=== PATIENT | female | born 1960 | race Caucasian/White ===

== ENCOUNTER → 2016-07-12 | Outpatient (CLI) | payer MEDICAID ==
[~2016-07-12] MED LIST: CARB200T4 PO; DOCU100C8 PO; DRON10CA PO; EPIN0.3P3 IM; HYDR12.53 PO; LEVO750T26 PO; OXYC1TAB6 PO; OXYC30TA PO; OXYC30TA66 PO; RANI150C PO; TERB250T3 PO
== END | disposition home or self-care (01) ==
LOC: CFH 12:49
PROVIDERS: ATTEND Radiology Radiation Oncology
DX: D32.0 Benign neoplasm of cerebral meninges (principal)
CPT/HCPCS: 70553

== ENCOUNTER → 2017-02-17 | Outpatient (CLI) | payer MEDICAID ==
[~2017-02-17] MED LIST changes: +DOCU100C33 PO; -DOCU100C8 PO; +GADOBUTROL 7.5 MMOL/7.5 ML PFS ONE
== END | disposition home or self-care (01) ==
LOC: CFH 14:35
PROVIDERS: ATTEND Neurological Surgery
DX: G93.89 Other specified disorders of brain (principal); R90.82 White matter disease, unspecified
CPT/HCPCS: 70551; A9585

== ENCOUNTER 2017-03-09 22:23 | Inpatient (IN) | payer MEDICAID ==
[~2017-03-09] VITALS: Ht 147.3 cm; Wt 67.2 kg
[~2017-03-09 22:23] MED LIST changes: -GADOBUTROL 7.5 MMOL/7.5 ML PFS ONE
[2017-03-09] MEDS ORDERED: SODIUM CHLORIDE FLUSH 10ML SYR IVF ONE (23:00)
[2017-03-09] MEDS ORDERED: SODIUM CHLORIDE 0.9% 1,000ML IVBOLUS ONE (23:00)
[2017-03-09] MEDS ORDERED: ACETAMINOPHEN 500 MG TABLET PO ONE (23:00)
[2017-03-09] MEDS ORDERED: ONDANSETRON 2MG/ML, 2ML IVPush ONE (23:00)
[2017-03-09] MEDS ORDERED: ONDANSETRON 2MG/ML, 2ML ONE (23:16)
[2017-03-09] MEDS ORDERED: ACETAMINOPHEN 500 MG TABLET ONE (23:16)
[2017-03-09 23:21] LABS: BASOPHILS # (AUTO) 0.03 x10^3/uL (0-0.1); BASOPHILS % (AUTO) 0 % (0-1); EOSINOPHILS # (AUTO) 0.03 x10^3/uL (0-0.4); EOSINOPHILS % (AUTO) 0 % (1-7); LYMPHOCYTES # (AUTO) 1.42 x10^3/uL (1-3.4); LYMPHOCYTES % (AUTO) 11 % (22-44); MD NO; MEAN CORPUSCULAR HEMOGLOBIN 30.2 pg (27.0-34.8); MEAN CORPUSCULAR HGB CONC 33.8 g/dL (32.4-35.8); MEAN CORPUSCULAR VOLUME 89.2 fL (80-100); MEAN PLATELET VOLUME 8.5 fL (7.4-10.4); MONOCYTES # (AUTO) 0.87 x10^3/uL (0.2-0.8); MONOCYTES % (AUTO) 7 % (2-9); NEUTROPHILS # (AUTO) 10.47 x10^3/uL (1.8-6.8); NEUTROPHILS % (AUTO) 82 % (42-75); PLATELET COUNT 163 x10^3/uL (130-400); RED BLOOD COUNT 4.99 x10^6/uL (3.82-5.3)
[2017-03-09 23:33] LABS: ALBUMIN 3.3 g/dL (3.4-5.0); ANION GAP 5 mmol/L (5-15); CALCIUM 8.7 mg/dL (8.5-10.1); CHLORIDE 101 mmol/L (98-107); CREATININE 0.91 mg/dL (0.55-1.02)
[2017-03-09 23:49] LABS: RAPID INFLUENZA A Negative (Negative); RAPID INFLUENZA B Negative (Negative)
[2017-03-10] MEDS ORDERED: AZITHROMYCIN 500 MG in SODIUM CHLORIDE 0.9% 250 ML IVPB ONE (00:30)
[2017-03-10] MEDS ORDERED: SODIUM CHLORIDE 0.9% 1,000ML IVBOLUS ONE (00:30)
[2017-03-10] MEDS ORDERED: CEFTRIAXONE PMX 1GM/50ML 50 ML IVPB ONE (00:30)
[2017-03-10] MEDS ORDERED: CEFTRIAXONE PMX 1GM/50ML 50 ML ONE (00:46)
[2017-03-10] MEDS ORDERED: ALPR1TAB6 PO (00:52)
[2017-03-10] MEDS ORDERED: FURO20TA3 PO (00:53)
[2017-03-10] MEDS ORDERED: [UNRECOGNIZED DRUG - REMARK] (00:53)
[2017-03-10 01:43] VITALS: BP 92/44
[2017-03-10] MEDS ORDERED: PROMETHAZINE 25 MG/ML, 1ML IM PRN (04:30)
[2017-03-10] MEDS ORDERED: ACETAMINOPHEN 325 MG TABLET PO PRN (04:30)
[2017-03-10] MEDS ORDERED: ONDANSETRON ODT 4 MG PO PRN (04:30)
[2017-03-10] MEDS ORDERED: ONDANSETRON 2MG/ML, 2ML IVPush PRN (04:30)
[2017-03-10] MEDS ORDERED: BISACODYL 10 MG SUPP PR PRN (04:30)
[2017-03-10] MEDS ORDERED: DOCUSATE 100 MG CAPSULE PO PRN (04:30)
[2017-03-10] MEDS: SODIUM CHLORIDE 0.9% 1,000 ML IV SCH ×3 (04:33→21:30)
[2017-03-10 04:51] LABS: BASOPHILS # (AUTO) 0.02 x10^3/uL (0-0.1); BASOPHILS % (AUTO) 0 % (0-1); EOSINOPHILS # (AUTO) 0.03 x10^3/uL (0-0.4); EOSINOPHILS % (AUTO) 0 % (1-7); LYMPHOCYTES # (AUTO) 0.94 x10^3/uL (1-3.4); LYMPHOCYTES % (AUTO) 6 % (22-44); MD NO; MEAN CORPUSCULAR HEMOGLOBIN 30.2 pg (27.0-34.8); MEAN CORPUSCULAR HGB CONC 33.7 g/dL (32.4-35.8); MEAN CORPUSCULAR VOLUME 89.4 fL (80-100); MONOCYTES # (AUTO) 1.02 x10^3/uL (0.2-0.8); MONOCYTES % (AUTO) 7 % (2-9); NEUTROPHILS # (AUTO) 13.15 x10^3/uL (1.8-6.8); NEUTROPHILS % (AUTO) 87 % (42-75); PLATELET COUNT 122 x10^3/uL (130-400); RED BLOOD COUNT 4.31 x10^6/uL (3.82-5.3)
[2017-03-10 04:57] LABS: CHLORIDE 108 mmol/L (98-107)
[2017-03-10 04:58] LABS: INTERNATIONAL NORMALIZED RATIO 1.09 (0.93-1.1); PROTHROMBIN TIME 11.2 Seconds (9.6-11.5)
[2017-03-10 05:09] LABS: ALANINE AMINOTRANSFERASE 48 U/L (12-78); ALBUMIN 2.5 g/dL (3.4-5.0); ALKALINE PHOSPHATASE 78 U/L (45-117); ANION GAP 7 mmol/L (5-15); BILIRUBIN,TOTAL 0.7 mg/dL (0.2-1.0); CALCIUM 7.5 mg/dL (8.5-10.1); CHOL/HDL RATIO 3.1; CHOLESTEROL, TOTAL 145 mg/dL (140-239); CREATININE 0.77 mg/dL (0.55-1.02); HDL CHOL % 32 % (28-40); HDL CHOLESTEROL (DIRECT) 47 mg/dL (40-60); LDL CHOLESTEROL,CALCULATED 84 mg/dL (54-169); LDL/HDL RATIO 1.8 (0.5-3.0); TOTAL PROTEIN 6.1 g/dL (6.4-8.2); TRIGLYCERIDES 70 mg/dL (50-200); TROPONIN I < 0.015 ng/mL (0.000-0.045); VLDL CHOLESTEROL 14 mg/dL (0-25)
[2017-03-10] MEDS ORDERED: ALBUTEROL/IPRATROPIUM 2.5MG/0.5MG, 3 ML NPPB PRN (05:30)
[2017-03-10 05:44] LABS: HEMOGLOBIN A1C 5.5 % (4.2-6.3)
[2017-03-10 05:46] LABS: THYROID STIMULATING HORMONE 0.284 mIU/L (0.358-3.740)
[2017-03-10] MEDS: LEVOFLOXACIN/PMX 750MG/150ML 150 ML IV SCH (05:56)
[2017-03-10 07:33] VITALS: BP 108/72
[2017-03-10] MEDS: OXYcodone IR 30 MG TABLET PO SCH ×2 (09:09→20:04)
[2017-03-10] MEDS: HEPARIN 5,000 UNITS/ML, 1ML SQ SCH ×2 (09:09→16:32)
[2017-03-10 10:50] LABS: CULTURE INDICATED? NO; MICROSCOPIC NOT IND
[2017-03-10 11:02] LABS: AMPHETAMINE SCREEN, URINE Positive (Negative); BARBITURATE SCREEN, URINE Negative (Negative); BENZODIAZEPINE SCREEN, URINE Negative (Negative); CANNABINOID SCREEN, URINE Positive (Negative); COCAINE SCREEN, URINE Negative (Negative); METHADONE SCREEN, URINE Negative (Negative); OPIATE SCREEN, URINE Positive (Negative)
[2017-03-10 11:06] LABS: TROPONIN I < 0.015 ng/mL (0.000-0.045)
[2017-03-10 14:00] VITALS: BP 113/80
[2017-03-10 19:00] VITALS: BP 151/96
[2017-03-10] MEDS ORDERED: OXYcodone IR 5MG TABLET ONE (20:00)
[2017-03-10] MEDS ORDERED: DIPHENHYDRAMINE 25 MG CAPSULE PO ONE (23:00)
[2017-03-11 00:20] VITALS: BP 113/75
[2017-03-11] MEDS: HEPARIN 5,000 UNITS/ML, 1ML SQ SCH ×3 (00:26→15:49)
[2017-03-11] MEDS: SODIUM CHLORIDE 0.9% 1,000 ML IV SCH (04:44)
[2017-03-11] MEDS: LEVOFLOXACIN/PMX 750MG/150ML 150 ML IV SCH (04:44)
[2017-03-11 05:51] LABS: ALBUMIN 2.5 g/dL (3.4-5.0); ANION GAP 6 mmol/L (5-15); CHLORIDE 108 mmol/L (98-107)
[2017-03-11 05:54] LABS: ALANINE AMINOTRANSFERASE 41 U/L (12-78); ALKALINE PHOSPHATASE 78 U/L (45-117); BILIRUBIN,TOTAL 0.9 mg/dL (0.2-1.0); TOTAL PROTEIN 6.4 g/dL (6.4-8.2)
[2017-03-11 06:12] LABS: BASOPHILS # (AUTO) 0.02 x10^3/uL (0-0.1); BASOPHILS % (AUTO) 0 % (0-1); EOSINOPHILS # (AUTO) 0.06 x10^3/uL (0-0.4); EOSINOPHILS % (AUTO) 1 % (1-7); LYMPHOCYTES # (AUTO) 1.62 x10^3/uL (1-3.4); LYMPHOCYTES % (AUTO) 17 % (22-44); MD NO; MEAN CORPUSCULAR HEMOGLOBIN 30.4 pg (27.0-34.8); MEAN CORPUSCULAR VOLUME 89.4 fL (80-100); MEAN PLATELET VOLUME 9.3 fL (7.4-10.4); MONOCYTES % (AUTO) 11 % (2-9); NEUTROPHILS # (AUTO) 6.74 x10^3/uL (1.8-6.8); NEUTROPHILS % (AUTO) 71 % (42-75); PLATELET COUNT 113 x10^3/uL (130-400); RED BLOOD COUNT 4.02 x10^6/uL (3.82-5.3); RED CELL DISTRIBUTION WIDTH 12.6 % (9.6-15.2)
[2017-03-11 07:08] VITALS: BP 115/76
[2017-03-11] MEDS ORDERED: OXYcodone IR 5MG TABLET ONE (07:36)
[2017-03-11] MEDS: OXYcodone IR 30 MG TABLET PO SCH (07:40)
[2017-03-11] MEDS ORDERED: MAGNESIUM SULFATE PMX 2GM/50ML 50 ML IV ONE (08:30)
[2017-03-11] MEDS ORDERED: POTASSIUM PHOSPHATE 44 MEQ in SODIUM CHLORIDE 0.9% 500 ML IV ONE (08:30)
== END 2017-03-11 16:18 | disposition left against medical advice (07) | DRG 195 ==
LOC: ED 23:47 → EDIP 03-10 00:44 → 4NOR 03-10 01:26
PROVIDERS: ADMIT Surgery; ATTEND Hospitalist
DX: J15.9 Unspecified bacterial pneumonia (principal); E83.39 Other disorders of phosphorus metabolism; E86.0 Dehydration; G40.909 Epilepsy, unspecified, not intractable, without status epilepticus; Z53.21 Procedure and treatment not carried out due to patient leaving prior to being seen by health care provider; E83.42 Hypomagnesemia; H54.62 Unqualified visual loss, left eye, normal vision right eye; I10 Essential (primary) hypertension; R09.02 Hypoxemia; Z85.841 Personal history of malignant neoplasm of brain; Z87.891 Personal history of nicotine dependence
CPT/HCPCS: 36415; 36600; 71010; 71020; 80048; 80053; 80061; 80307; 81003; 82040; 82803; 83036; 83735; 84100; 84443; 84484; 85025; 85610; 87040; 87400; 96361; 96374; 96375; J0456; J0696; J1644; J1956; J2405; J7620; G0479; J3475; J7030; J7040; J7050; Q0163

== ENCOUNTER 2017-03-13 13:22 | Inpatient (IN) | payer MEDICAID ==
[~2017-03-13] VITALS: Ht 149.9 cm; Wt 62.4 kg
[~2017-03-13 13:22] MED LIST changes: +ALPR1TAB6 PO; +FURO20TA3 PO; +[UNRECOGNIZED DRUG - REMARK]
[2017-03-13] MEDS ORDERED: SODIUM CHLORIDE FLUSH 10ML SYR IVF ONE (15:30)
[2017-03-13] MEDS ORDERED: CEFTRIAXONE PMX 1GM/50ML 50 ML IVPB ONE (15:30)
[2017-03-13] MEDS ORDERED: CEFTRIAXONE PMX 1GM/50ML 50 ML ONE (15:42)
[2017-03-13 15:58] LABS: BASOPHILS # (AUTO) 0.07 x10^3/uL (0-0.1); BASOPHILS % (AUTO) 1 % (0-1); EOSINOPHILS # (AUTO) 0.08 x10^3/uL (0-0.4); EOSINOPHILS % (AUTO) 1 % (1-7); LYMPHOCYTES % (AUTO) 14 % (22-44); MD NO; MEAN CORPUSCULAR HEMOGLOBIN 29.9 pg (27.0-34.8); MEAN CORPUSCULAR HGB CONC 33.7 g/dL (32.4-35.8); MEAN CORPUSCULAR VOLUME 88.8 fL (80-100); MEAN PLATELET VOLUME 8.9 fL (7.4-10.4); MONOCYTES # (AUTO) 0.77 x10^3/uL (0.2-0.8); MONOCYTES % (AUTO) 11 % (2-9); NEUTROPHILS # (AUTO) 5.38 x10^3/uL (1.8-6.8); NEUTROPHILS % (AUTO) 74 % (42-75); PLATELET COUNT 167 x10^3/uL (130-400); RED BLOOD COUNT 4.18 x10^6/uL (3.82-5.3); RED CELL DISTRIBUTION WIDTH 12.6 % (9.6-15.2)
[2017-03-13 16:03] LABS: ALANINE AMINOTRANSFERASE 41 U/L (12-78); ALBUMIN 2.4 g/dL (3.4-5.0); ANION GAP 5 mmol/L (5-15); CHLORIDE 111 mmol/L (98-107); CREATININE 0.54 mg/dL (0.55-1.02)
[2017-03-13 16:07] LABS: ALKALINE PHOSPHATASE 95 U/L (45-117); BILIRUBIN,TOTAL 0.6 mg/dL (0.2-1.0); TOTAL PROTEIN 6.3 g/dL (6.4-8.2); TROPONIN I 0.019 ng/mL (0.000-0.045)
[2017-03-13] MEDS ORDERED: TRAZODONE 50MG TABLET PO PRN (17:00)
[2017-03-13] MEDS ORDERED: GUAIFENESIN/DM 200-20MG, 10ML UDC PO PRN (17:00)
[2017-03-13] MEDS ORDERED: BISACODYL 10 MG SUPP PR PRN (17:00)
[2017-03-13] MEDS ORDERED: ONDANSETRON ODT 4 MG PO PRN (17:00)
[2017-03-13] MEDS ORDERED: morphine SULFATE 10 MG/ML, 1ML IVPush PRN (17:00)
[2017-03-13] MEDS ORDERED: POLYETHYLENE GLYCOL 17 GM PACKET PO PRN (17:00)
[2017-03-13] MEDS ORDERED: ACETAMINOPHEN 325 MG TABLET PO PRN (17:00)
[2017-03-13] MEDS ORDERED: hydrALAzine 20 MG/ML, 1ML IVPush PRN (17:00)
[2017-03-13] MEDS ORDERED: LABETALOL 5MG/ML, 20ML IVPush PRN (17:00)
[2017-03-13] MEDS ORDERED: ONDANSETRON 2MG/ML, 2ML IVPush PRN (17:00)
[2017-03-13 17:25] LABS: FREE T4 (FREE THYROXINE) 1.12 ng/dL (0.76-1.46); THYROID STIMULATING HORMONE 0.241 mIU/L (0.358-3.740)
[2017-03-13 19:53] VITALS: BP 100/67
[2017-03-13] MEDS: NICOTINE 21 MG/24 HR PATCH.TD24 TD SCH (21:00)
[2017-03-13] MEDS: FAMOTIDINE 20 MG TABLET PO SCH (22:40)
[2017-03-13] MEDS: HEPARIN 5,000 UNITS/ML, 1ML SQ SCH (22:42)
[2017-03-14] MEDS: LEVOFLOXACIN/PMX 750MG/150ML 150 ML IV SCH ×2 (00:32→23:35)
[2017-03-14] MEDS ORDERED: MULT-658 PO (01:00)
[2017-03-14] MEDS ORDERED: ALBUTEROL SULFATE 2.5 MG/3 ML NPPB PRN (05:30)
[2017-03-14 05:31] VITALS: BP 107/74
[2017-03-14] MEDS: HEPARIN 5,000 UNITS/ML, 1ML SQ SCH ×3 (05:53→22:15)
[2017-03-14] MEDS: OXYcodone IR 5MG TABLET PO PRN ×3 (05:53→22:05)
[2017-03-14 06:04] LABS: BASOPHILS # (AUTO) 0.02 x10^3/uL (0-0.1); BASOPHILS % (AUTO) 1 % (0-1); EOSINOPHILS # (AUTO) 0.14 x10^3/uL (0-0.4); EOSINOPHILS % (AUTO) 3 % (1-7); LYMPHOCYTES # (AUTO) 0.92 x10^3/uL (1-3.4); LYMPHOCYTES % (AUTO) 22 % (22-44); MD NO; MEAN CORPUSCULAR HEMOGLOBIN 30.1 pg (27.0-34.8); MEAN CORPUSCULAR HGB CONC 33.9 g/dL (32.4-35.8); MEAN CORPUSCULAR VOLUME 88.9 fL (80-100); MEAN PLATELET VOLUME 9.1 fL (7.4-10.4); MONOCYTES # (AUTO) 0.55 x10^3/uL (0.2-0.8); MONOCYTES % (AUTO) 13 % (2-9); NEUTROPHILS # (AUTO) 2.65 x10^3/uL (1.8-6.8); NEUTROPHILS % (AUTO) 62 % (42-75); PLATELET COUNT 150 x10^3/uL (130-400)
[2017-03-14 06:10] LABS: CHLORIDE 111 mmol/L (98-107)
[2017-03-14 06:25] LABS: ANION GAP 7 mmol/L (5-15); CALCIUM 8.1 mg/dL (8.5-10.1); CHOL/HDL RATIO 5.5; CHOLESTEROL, TOTAL 138 mg/dL (140-239); HDL CHOL % 18 % (28-40); HDL CHOLESTEROL (DIRECT) 25 mg/dL (40-60); LDL CHOLESTEROL,CALCULATED 86 mg/dL (54-169); LDL/HDL RATIO 3.4 (0.5-3.0); TRIGLYCERIDES 133 mg/dL (50-200); VLDL CHOLESTEROL 27 mg/dL (0-25)
[2017-03-14 08:30] VITALS: BP 111/77
[2017-03-14] MEDS: FAMOTIDINE 20 MG TABLET PO SCH ×2 (09:23→22:04)
[2017-03-14] MEDS: ALPRazolam 1MG TABLET PO PRN ×2 (10:46→17:02)
[2017-03-14 13:08] VITALS: BP 109/74
[2017-03-14] MEDS: NICOTINE 21 MG/24 HR PATCH.TD24 TD SCH (16:57)
[2017-03-14 20:09] VITALS: BP 98/62
[2017-03-15 02:51] VITALS: BP 112/77
[2017-03-15] MEDS: OXYcodone IR 5MG TABLET PO PRN (05:12)
[2017-03-15] MEDS: HEPARIN 5,000 UNITS/ML, 1ML SQ SCH (05:12)
[2017-03-15 07:34] LABS: ANION GAP 8 mmol/L (5-15); BASOPHILS # (AUTO) 0.05 x10^3/uL (0-0.1); BASOPHILS % (AUTO) 1 % (0-1); CALCIUM 8.1 mg/dL (8.5-10.1); CHLORIDE 108 mmol/L (98-107); EOSINOPHILS # (AUTO) 0.15 x10^3/uL (0-0.4); EOSINOPHILS % (AUTO) 3 % (1-7); LYMPHOCYTES # (AUTO) 1.17 x10^3/uL (1-3.4); LYMPHOCYTES % (AUTO) 23 % (22-44); MD NO; MEAN CORPUSCULAR HEMOGLOBIN 29.9 pg (27.0-34.8); MEAN CORPUSCULAR HGB CONC 33.2 g/dL (32.4-35.8); MEAN CORPUSCULAR VOLUME 89.8 fL (80-100); MEAN PLATELET VOLUME 8.6 fL (7.4-10.4); MONOCYTES # (AUTO) 0.57 x10^3/uL (0.2-0.8); MONOCYTES % (AUTO) 11 % (2-9); NEUTROPHILS # (AUTO) 3.26 x10^3/uL (1.8-6.8); NEUTROPHILS % (AUTO) 63 % (42-75); PLATELET COUNT 199 x10^3/uL (130-400); RED BLOOD COUNT 4.26 x10^6/uL (3.82-5.3); RED CELL DISTRIBUTION WIDTH 13.2 % (9.6-15.2)
[2017-03-15 07:36] LABS: CREATININE 0.76 mg/dL (0.55-1.02)
[2017-03-15 07:43] VITALS: BP 117/84
[2017-03-15] MEDS: FAMOTIDINE 20 MG TABLET PO SCH (08:24)
[2017-03-15] MEDS ORDERED: ACYC30OI2 TP (10:49)
[2017-03-15] MEDS ORDERED: LEVO750T26 PO (10:49)
== END 2017-03-15 17:05 | disposition home or self-care (01) | DRG 154 ==
LOC: ED 16:26 → EDIP 16:30 → 4EST 19:36 → 4WST 03-14 18:22 → DCLOUNGE 03-15 12:35
PROVIDERS: ADMIT Family Medicine; ATTEND Family Medicine
DX: B00.1 Herpesviral vesicular dermatitis (principal); J15.9 Unspecified bacterial pneumonia; F80.0 Phonological disorder; H54.62 Unqualified visual loss, left eye, normal vision right eye; I10 Essential (primary) hypertension; R09.02 Hypoxemia; F12.90 Cannabis use, unspecified, uncomplicated; Z72.0 Tobacco use; Z79.891 Long term (current) use of opiate analgesic; Z86.011 Personal history of benign neoplasm of the brain; Z87.01 Personal history of pneumonia (recurrent); Z98.51 Tubal ligation status; Z88.6 Allergy status to analgesic agent; Z88.2 Allergy status to sulfonamides; Z88.0 Allergy status to penicillin
CPT/HCPCS: 36415; 80048; 80053; 80061; 83605; 83735; 83880; 84100; 84439; 84443; 84484; 85025; 87040; 93005; 93306; 99285; J0696; J1644; J1956

== ENCOUNTER → 2017-07-26 | Outpatient (CLI) | payer MEDICAID ==
[~2017-07-26] MED LIST changes: +ACYC30OI2 TP; +GADOBUTROL 7.5 MMOL/7.5 ML PFS ONE; +MULT-658 PO
== END | disposition home or self-care (01) ==
LOC: RAD 09:10
PROVIDERS: ATTEND Neurological Surgery
DX: G93.89 Other specified disorders of brain (principal); R90.82 White matter disease, unspecified; D32.0 Benign neoplasm of cerebral meninges
CPT/HCPCS: 70553; A9585

== ENCOUNTER 2019-01-17 12:41 | Outpatient (CLI) | payer MEDICAID ==
[~2019-01-17 12:41] MED LIST changes: +CARV3.1212 PO; -GADOBUTROL 7.5 MMOL/7.5 ML PFS ONE; +HYDR12.517 PO; -HYDR12.53 PO
[2019-01-17] MEDS ORDERED: GADOTERATE 10 MMOL/20 ML VIAL ONE (13:24)
== END 2019-01-17 23:59 | disposition home or self-care (01) ==
LOC: CFH 12:41
PROVIDERS: ATTEND Neurological Surgery
DX: G93.89 Other specified disorders of brain (principal); F12.90 Cannabis use, unspecified, uncomplicated; D32.0 Benign neoplasm of cerebral meninges; Z85.89 Personal history of malignant neoplasm of other organs and systems; Z86.14 Personal history of Methicillin resistant Staphylococcus aureus infection
CPT/HCPCS: 70551; A9575

== ENCOUNTER → 2020-01-28 | Outpatient (CLI) | payer MEDICAID ==
[~2020-01-28] MED LIST changes: +GADOTERATE 7.5 MMOL/15 ML VIAL ONE; -OXYC30TA PO; +OXYC30TA3 PO
== END | disposition home or self-care (01) ==
LOC: RAD 09:35
PROVIDERS: ATTEND Radiology Radiation Oncology
DX: D32.0 Benign neoplasm of cerebral meninges (principal); G93.89 Other specified disorders of brain
CPT/HCPCS: 70553; A9575

== ENCOUNTER → 2020-02-19 | Outpatient (CLI) | payer MEDICAID ==
[~2020-02-19] MED LIST changes: -GADOTERATE 7.5 MMOL/15 ML VIAL ONE
== END | disposition home or self-care (01) ==
LOC: ROC 08:09
PROVIDERS: ATTEND Radiology Radiation Oncology
DX: D32.0 Benign neoplasm of cerebral meninges (principal)
CPT/HCPCS: 99213; G0463

== ENCOUNTER 2020-06-09 09:02 | Emergency (ER) | payer MEDICAID ==
[~2020-06-09] VITALS: Ht 147.3 cm; Wt 63.3 kg
[~2020-06-09 09:02] MED LIST changes: +ALPR-585 PO; -ALPR1TAB6 PO
--- NOTE | 2020-06-09 09:48 | NUR ---
TO [facility] FROM LOBBY
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
--- NOTE | 2020-06-09 09:52 | NUR ---
MAURICE RN: PT HISTORY: 1. Hypertension. 2. Prior craniotomy secondary to meningioma, status post partial resection and then later CyberKnife therapy. 3. 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 4. Resultant seizure disorder from prior meningioma. 5. History of streptococcus and methicillin-sensitive Staphylococcus aureus pneumonia. 6. 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 7. x3. 8. Prior light right leg fracture.
[2020-06-09] MEDS ORDERED: CLINDAMYCIN 300 MG CAPSULE PO ONE (10:00)
[2020-06-09] MEDS ORDERED: DIPH,PERTUSS(ACELL),TET VAC/PF 0.5 ML IM-VACC ONE ×2 (10:00→11:20)
[2020-06-09] MEDS ORDERED: LIDOCAINE-MPF 1%, 5ML INFIL ONE (10:00)
[2020-06-09] MEDS ORDERED: LIDOCAINE-MPF 1%, 5ML ONE ×2 (10:24→10:44)
--- NOTE | 2020-06-09 10:30 | NUR ---
assumed care of pt. pt here for redness/swelling to R hand x3 days after an RV chair fell on hr hand while she was trying to install it. pt denies numbness/tingling, CMS intact. 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 friend at bedside Jsoué LANG has been to bedside for lidocaine adminstration. pt to have I&D. pt updated on POC
--- NOTE | 2020-06-09 10:48 | NUR ---
Report received and care assumed. Introductions made with off-going RN and this RN. Pt walking around in room with notably swollen, red R hand. PA entering room with more Lidocaine for I&D procedure at this time.
--- NOTE | 2020-06-09 10:58 | NUR ---
Josué LANG has bene to bedside for additional lidocaine administration report to Adrienne NAJERA
[2020-06-09] MEDS ORDERED: CLINDAMYCIN 300 MG CAPSULE ONE (11:19)
--- NOTE | 2020-06-09 11:29 | NUR ---
PO abx, TDaP, and R pinky dressing completed. MD at bedside for exam. States pt needs to come back if site is not better in 2 days. Adaptic and gauze with arnold wrap applied to site.
[2020-06-09] MEDS ORDERED: OXYcodone/APAP 5/325MG TABLET PO ONE (12:00)
[2020-06-09] MEDS ORDERED: OXYcodone/APAP 5/325MG TABLET ONE (12:08)
[2020-06-09 12:20] VITALS: BP 155/95
== END 2020-06-09 12:23 | disposition home or self-care (01) ==
LOC: ED 10:52
DX: S60.221A Contusion of right hand, initial encounter (principal); L03.113 Cellulitis of right upper limb; L03.011 Cellulitis of right finger; I10 Essential (primary) hypertension; W23.0XXA Caught, crushed, jammed, or pinched between moving objects, initial encounter; Y93.89 Activity, other specified; Y92.009 Unspecified place in unspecified non-institutional (private) residence as the place of occurrence of the external cause; Y99.8 Other external cause status
CPT/HCPCS: 10060; 90471; 90715